=== PATIENT | female | born 1965 | race Caucasian/White ===

== ENCOUNTER 2017-11-03 17:23 | Emergency (ER) | payer OTHER ==
[~2017-11-03] VITALS: Ht 144.8 cm; Wt 46.7 kg
--- NOTE | 2017-11-03 21:21 | ED GENERAL ADULT ---
History of Present Illness General Chief Complaint: General Adult Stated Complaint: "NUMBNESS IN MY HEAD" Source: patient, Exam Limitations: no limitations Vital Signs & Intake/Output Vital Signs & Intake/Output Vital Signs Date Time Temp Pulse Resp B/P B/P Pulse O2 O2 Flow FiO2 Mean Ox Delivery Rate 11/04 0013 98.7 64 18 108/67 99 Room Air 11/03 2210 97 Room Air 11/03 2206 97.1 70 20 110/61 97 Room Air 11/03 1729 98.6 98 18 117/74 98 Room Air ED Intake and Output 11/04 0000 11/03 1200 Intake Total 0 Output Total Balance 0 Intake, IV 0 Patient 103 lb Weight Weight Reported by Patient Measurement Method Allergies Coded Allergies: amoxicillin (Severe, HIVES 11/03/17) omeprazole (From PRILOSEC) (Severe, HIVES 11/03/17) Triage Note: 52 YO FEMALE TO TRIAGE C/O NUMBESS IN R SIDE OF HEAD. STATES THIS HAS BEEN AN ONGOING ISSUE AND SHE HAS BEEN SEEING MULTIPLE DOCTORS. STATES IT ALL STARTED WITH ALOT OF MUCOUS IN HER THROAT. STATES THE NUMBESS IS ON/OFF NEUROS INTACT. DENIES PAIN. Triage Nurses Notes Reviewed? yes HPI: PATIENT AND HISTORIAN. PATIENT REPORTS INTERMITTENT FACIAL NUMBENESS R>> L FOR 2-3 MONTHS. ALSO REPORTS BL UPPER AND LOWER EXT NUMBESS. RECENT IMAGING AND LAB WORK WITH PCP NEGATIVE. RECENT ROOT CANAL ON L-SIDE IN MAY 2017 WITHOUT COMPLICATIONS. SINCE ROOT CANAL PATIENT REPORTS BACK OF NECK AND SUBMANDIBULAR SORENESS WITH NUMBNESS. EXACERBATED BY EATING. RECENT POOR APPETITE. FEELS LUMP IN THROAT WITHOUT ODYNOPHAGIA. ABLE TO GET DOWN SOLIDS AND LIQUIDS. RECENT ENDOSCOPY DONE WITH DR. SOTO AND WAS PLACED ON NEW PPI. PATIENT HAVING A LOT OF ANXIETY. RECENTLY STARTED LEXAPRO. BEEN A STRESSFUL YEAR. TEMPORAL GERMAN SINCE STARTING LEXAPRO. DENIES HX OF MIGRAINES. REPORTS DAUGHTER ALSO HAS ANXIETY AND FINGER NUMBNESS. DENIES NAUSEA, VOMITING, WEAKNESS, PALPITATIONS, CP, SOB. (Eden GRIFFITH,Mike) Reconcile Medications Escitalopram Oxalate 10 MG TABLET 1 TAB PO DAILY MENTAL HEALTH (Reported) Lorazepam 1 MG TABLET 0.5 TAB PO DAILY NEEDED ANXIETY (Reported) (Abner GRIFFITH,Birgit) Past History Travel History Traveled to [place] past 21 day No Medical History Any Pertinent Medical History? 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 Yes (Eden GRIFFITH,Mike) Review of Systems Review of Systems Constitutional: Reports: see HPI. (Eden GRIFFITH,Mike) Physical Exam Physical Exam General Appearance: well developed/nourished, no apparent distress, alert, anxious Head: atraumatic, normal appearance Eyes: Bilateral: normal appearance, PERRL, EOMI. Ears, Nose, Throat: normal pharynx, normal ENT inspection, hearing grossly normal Neck: normal inspection, supple, full range of motion Respiratory: normal breath sounds, chest non-tender Cardiovascular: regular rate/rhythm Gastrointestinal: normal bowel sounds, soft, non-tender Back: normal inspection, normal range of motion Extremities: BL hand tremor Core Measures ACS in differential dx? No CVA/TIA Diagnosis: No Sepsis Present: No Sepsis Focused Exam Completed? No (Eden GRIFFITH,Mike) Physical Exam Peripheral Pulses: 2+ radial (R), 2+ radial (L) Neurologic/Psych: no motor/sensory deficits, awake, alert, oriented x 3 Skin: intact, normal color, warm/dry (Abner GRIFFITH,Birgit) Progress Differential Diagnoses I considered the following diagnoses in my evaluation of the patient: Plan of Care: Orders Procedure Date/time Status Lab Add-on Test 11/03 2336 Active Lab Add-on Test 11/038 Active PHOSPHORUS 11/03 2201 Complete MAGNESIUM 11/03 2201 Complete FOLIC ACID 11/03 2201 Complete CALCIUM 11/03 2201 Complete VITAMIN B12 11/03 2201 Complete EKG 11/03 2145 Active THYROID STIMULATING HORMONE 11/03 2125 Complete FREE T4 11/03 2125 Complete CBC WITHOUT DIFFERENTIAL 11/03 2125 Complete BASIC ELECTROLYTES PLUS BUN&CR 11/03 2125 Complete Laboratory Tests 11/03/17 220: Anion Gap 14, Estimated GFR > 60, BUN/Creatinine Ratio 16.7, Calcium 9.3, Phosphorus 3.2, Magnesium 1.9, Vitamin B12 724, Folate > 20.0 H, TSH 0.886, Free T4 1.33, CBC w Diff NO MAN DIFF REQ, RBC 4.65, MCV 90.3, MCH 29.9, RDW 12.6 , MPV 8.3, Gran % 56.5, Lymphocytes % 36.2, Monocytes % 6.7, Eosinophils % 0.3, Basophils % 0.3, Absolute Granulocytes 3.4, Absolute Lymphocytes 2.1, Absolute Monocytes 0.4, Absolute Eosinophils 0, Absolute Basophils 0, PUBS MCHC 33.1 11/03/17 2143: Vitamin B12 Cancelled, Folate Cancelled Initial ED EKG: low voltage (Mike Harmon MD) Differential Diagnoses I considered the following diagnoses in my evaluation of the patient: Repeat EKG: unchanged (Birgit Levine MD) Departure Departure Condition: Stable Departure Forms: Customer Survey General Discharge Information (Mike Harmon MD) Departure Time of Disposition: 7 Disposition: HOME OR SELF CARE Clinical Impression Primary Impression: Paresthesias Referrals: Hitesh CHARLES,Gayle De Jesus (PCP/Family) Additional Instructions: FOLLOW UP WITH YOUR PCP AND WITH YOUR CAROTID ULTRASOUND REQUESTED RETURN FOR ANY CHANGING OR WORSENING SYMPTOMS Resident Co-Sign Statement Statement: ED Attending supervision documentation- [X] I saw and evaluated the patient. I have also reviewed all the pertinent lab results and diagnostic results. I agree with the findings and the plan of care as documented in the Resident's documentation. [X] I have reviewed the ED Record and agree with the Resident's documentation. [] Additions or exceptions (if any) to the Resident's note and plan are summarized below: [] (Birgit Levine MD) Critical Care Note Critical Care Note Critical Care Time: non-applicable (Mike Harmon MD)
[2017-11-03 22:23] LABS: ABSOLUTE BASOPHIL COUNT 0 /CUMM (0.0-0.2); ABSOLUTE EOSINOPHIL COUNT 0 /CUMM (0.0-0.7); ABSOLUTE GRANULOCYTE CT 3.4 /CUMM (1.4-6.5); ABSOLUTE LYMPH COUNT 2.1 /CUMM (1.2-3.4); ABSOLUTE MONOCYTE COUNT 0.4 /CUMM (0.10-0.60); BASOPHIL % 0.3 % (0.0-2.0); EOSINOPHIL % 0.3 % (0-5); GRANULOCYTE % 56.5 % (42.2-75.2); MEAN CORPUSCULAR HGB 29.9 PG (27.0-31.0); MEAN CORPUSCULAR HGB CONC 33.1 G/DL (33.0-37.0); MEAN CORPUSCULAR VOLUME 90.3 FL (81.0-99.0); MEAN PLATELET VOLUME 8.3 FL (7.4-10.4); PLATELET COUNT 229 /CUMM (130-400); RBC DISTRIBUTION WIDTH 12.6 % (11.5-14.5); RED BLOOD CELL CT 4.65 /CUMM (4.20-5.40); WHITE BLOOD CELL COUNT 5.9 /CUMM (4.8-10.8)
[2017-11-03] MEDS ORDERED: ESCITALOPRAM OX10 MG PO (23:05)
[2017-11-03] MEDS ORDERED: LORAZEPAM1 M1 PO (23:06)
[2017-11-04 00:13] VITALS: BP 108/67
== END 2017-11-04 00:13 ==
LOC: ERH 17:23
PROVIDERS: Student in an Organized Health Care Education/Training Program
DX: R20.2 Paresthesia of skin (principal)
CPT/HCPCS: 82436; 93005; 93010